=== PATIENT | male | born 1950 | race Caucasian/White ===

== ENCOUNTER 2020-11-16 18:25 | Emergency (ER) | payer OTHER, SELFPAY ==
--- NOTE | ~2020-11-16 | XR_ITS ---
XR hip LT min 2V DATE: 11/16/2020 18:53 INDICATION: Postoperative hip one week ago. Prior hip dislocation. TECHNIQUE: 2 views COMPARISON: None FINDINGS: There is superior dislocation of the left femoral head at the left hip joint. There is subcutaneous emphysema at the lateral aspect of the left hip region. Extensive left external iliac, common femoral and femoral artery calcifications IMPRESSION: Complete superior left hip dislocation Subcutaneous emphysema of the soft tissues at lateral left hip area Reviewed, dictated and finalized at location A.
[2020-11-16 18:27] VITALS: BP 120/73; PULSE 107; RESP 16; TEMP 36.6; O2SAT 100
--- NOTE | 2020-11-16 18:43 | ED.SKABFB ---
HPI - Skin/Abscess/Foreign Bdy General Chief complaint: Skin/Abscess/Foreign Body Stated complaint: SURGICAL SITE BLEEDING Time Seen by Provider: 11/16/20 18:27 Source: patient and RN notes reviewed Mode of arrival: EMS Limitations: no limitations History of Present Illness HPI narrative: This is a 70 year old male who presents for evaluation of his left hip bleeding incision. He states he injured his hip on 11/05/20 and he had surgery on 11/08/20 at [facility]. He state he suffered 3 dislocations . He was released from [facility] rehab facility today, and he noticed worsening bleeding from his incision to his left hip. He does reports he has had intermittent bleeding from his incision prior to today but it worsened today. He states he takes chronic anticoagulation for atrial fibrillation but he does not know which medication. He denies any other bleeding issues such as epistaxis, hemoptysis , hematuria or rectal bleeding. HE denies weakness, fever, chills, nausea or vomiting. His pain has been controlled. Related Data Home Medications Medication Instructions Recorded Confirmed Unable to Obtain Home Medications 05/07/19 05/07/19 Allergies Allergy/AdvReac Type Severity Reaction Status Date / Time No Known Allergies Allergy Verified 05/07/19 16:58 Review of Systems Review of Systems: All systems reviewed & are unremarkable except as noted in HPI and below PMFSH Past Medical History Medical History Afib Arthritis BPH (benign prostatic hyperplasia) CHF (congestive heart failure) COPD (chronic obstructive pulmonary disease) HTN (hypertension) Liver disease PVD (peripheral vascular disease) Seizure Surgical History Surgical History (Updated 05/07/19 @ 17:04 by Rober Covarrubias) H/O right knee surgery History of ankle surgery Social History Social History Alcohol intake: current Exam Const: General: alert Orientation/consciousness: patient oriented x3 Eyes: EOM: EOMs intact bilaterally Resp: Effort & Inspection: normal respiratory effort and no retractions Auscultation: clear to auscultation bilaterally Cardio: Rate: regular rate Rhythm: regular rhythm GI: GI Palp: Yes Soft to palpation, No Tenderness to palpation present (GI) and No Guarding due to palpation present (GI) Auscultation: normal bowel sounds Skin: Other: left lower extremity with bruising through out hip down leg, He has approximately 3 cm opening at proximal part of incision. able to express 15 ml dark blood out, Neuro: General: patient oriented x3 Extrem: Other: left leg shortened with external rotation, left leg with edema and bruising Psych: Mental Status: mental status grossly normal Affect: normal affect Course Reevaluation(s) Reevaluation #1: Patient states his last xray was 5 days ago and it was in place at that time. He states has not noticed any worsening pain to suggest redislocation in 4-5 days. I explained that he will be transferred back to [facility] due to redislocation and wound evaluation. I spoke with Patient access at [facility] and he states he spoke with ortho fellow who request patient be sent to ER for reduction. I then spoke with Dr. Hobson who accepts patient to [facility] ED. Date: 11/16/20 Time: 20:21 Vital Signs Vital signs: Vital Signs Temperature 97.9 F 11/16/20 18:27 Pulse Rate 107 H 11/16/20 18:27 Respiratory Rate 16 11/16/20 18:27 Blood Pressure 120/73 11/16/20 18:27 Pulse Oximetry 100 11/16/20 18:27 Temperature 97.9 F 11/16/20 18:27 Pulse Rate 97 11/16/20 20:34 Respiratory Rate 16 11/16/20 20:34 Blood Pressure 116/84 11/16/20 20:34 Pulse Oximetry 99 11/16/20 20:34 MDM - Skin/Abscess/Foreign Bdy Lab Data Attestation: I reviewed the patient's lab results. Result diagrams: 11/16/20 18:49 11/16/20 18:49 Labs:
[2020-11-16 18:54] LABS: Basophils Percent Auto 0.4 % (0.2-1.2); Eosinophils Absolute Auto 0.1 K/mm3 (0-0.3); Eosinophils Percent Auto 0.8 % (0-4.4); Hematocrit 35.5 % (42.0-52.0); Hemoglobin 11.2 g/dL (14.0-18.0); Immature Granulocyte Absolute 0.04 K/mm3 (0.00-0.031); Immature Granulocyte Percent A 0.5 % (0-0.5); Lymphocytes Absolute Auto 1.07 K/mm3 (0.9-3.2); Lymphocytes Percent Auto 14.3 % (18.3-44.2); Mean Corpuscular HGB Conc 31.5 g/dl (32-36); Mean Corpuscular Hemoglobin 34.4 pg (26-34); Mean Corpuscular Volume 108.9 fl (80-100); Monocytes Absolute Auto 0.9 K/mm3 (0.1-0.6); Monocytes Percent Auto 11.7 % (2.6-8.5); Neutrophils Absolute Auto 5.4 K/mm3 (1.3-6.7); Neutrophils Percent Auto 72.3 % (45.5-73.1); Platelet Count Result 126 k/mm3 (150-375); Red Blood Count 3.26 M/mm3 (4.6-6.20); Red Cell Distribution Width 20.2 % (11.5-14.5); White Blood Count 7.5 K/mm3 (4.5-10.0)
[2020-11-16 19:07] LABS: INR 1.1; Partial Thromboplastin Time 27.8 SECONDS (22.3-36.8); Prothrombin Time 14.8 Seconds (11.1-14.7)
[2020-11-16 19:17] LABS: Alanine Aminotransferase 58 U/L (4-50); Albumin Level 3.4 g/dL (3.5-5.1); Alkaline Phosphatase 113 U/L (38-126); Anion Gap 7 mmol/L (8-16); Aspartate Amino Transferase 50 U/L (17-59); Blood Urea Nitrogen 17 mg/dL (9-20); Calcium 8.7 mg/dL (8.4-10.2); Carbon Dioxide 25 mmol/L (22-30); Chloride 102 mmol/L (98-107); Estimated CRCL calculation 92 ml/min; Estimated Glomerular Filt Rate > 60; Glucose 114 mg/dL (75-110); Potassium 4.5 mmol/L (3.4-5.0); Sodium 134 mmol/L (137-145)
[2020-11-16 20:34] VITALS: BP 116/84; PULSE 97; RESP 16; O2SAT 99
== END 2020-11-16 21:35 | disposition short-term general hospital (02) ==
PROVIDERS: Emergency Provider General Practice
DX: L76.22 Postprocedural hemorrhage of skin and subcutaneous tissue following other procedure (principal); M24.452 Recurrent dislocation, left hip; T81.82XA Emphysema (subcutaneous) resulting from a procedure, initial encounter; I48.91 Unspecified atrial fibrillation; I50.9 Heart failure, unspecified; I11.0 Hypertensive heart disease with heart failure; I73.9 Peripheral vascular disease, unspecified; K76.9 Liver disease, unspecified; N40.0 Benign prostatic hyperplasia without lower urinary tract symptoms; Z79.01 Long term (current) use of anticoagulants
CPT/HCPCS: 36415; 73502; 80053; 85025; 85610; 85730; 86850; 86900; 86901; 99285